=== PATIENT | female | born 1980 | race Caucasian/White ===

== ENCOUNTER → 2023-08-01 14:56 | Outpatient (BNVA) | payer BC, SELFPAY | PROVIDERS: Visit Provider Nurse Practitioner Women's Health | DX: Z01.419 Encounter for gynecological examination (general) (routine) without abnormal findings (principal); Z98.84 Bariatric surgery status | CPT/HCPCS: 82306; 82310; 82607; 82746; 83540; 84425; 84439; 84443; 84481; 87624 ==

== ENCOUNTER 2023-08-16 12:46 | Outpatient (CLI) | payer BC, SELFPAY ==
--- NOTE | 2023-08-16 13:06 | MM_ITS ---
WS: [email or web address] BILATERAL 3D TOMOSYNTHESIS DIGITAL SCREENING MAMMOGRAPHY WITH CAD CLINICAL INFORMATION: SCREENING HISTORY: Screening mammogram. No current complaints. COMPARISON: 09/05/2021 TECHNIQUE: Bilateral CC and MLO views. FINDINGS: Scattered fibroglandular densities bilaterally. No suspicious focal mass, asymmetry, calcifications, or architectural distortion. No evidence of malignancy. Incidental punctate calcifications. IMPRESSION: MM/[place] [id number] BI-RADS: 2-Benign FOLLOW UP: 1 Year Follow-up Recommend return to annual screening mammography.
--- NOTE | 2023-08-16 13:30 | XR_ITS ---
WS: [email or web address] SCREENING DEXA SCAN [employer] CLINICAL INFORMATION: E46 - Unspecified protein-calorie malnutrition COMPARISON: None. FINDINGS: The LEFT forearm bone mineral density measures 0.91. This corresponds to a T score score of 0.5 and Z score of 0.5. Left femoral neck bone mineral density measures 1.061 g/cm2. This corresponds to a T score of 0.4 and Z score of -0.2. Right femoral neck bone mineral density measures 1.074 g/cm2. This corresponds to a T score 0.5of and Z score of 0.0. Mean femoral neck bone mineral density measures 1.068 g/cm2. This corresponds to a T score of 0.5 and Z score of -0.1. IMPRESSION: Normal bone mineralization. Patient's FRAX calculated 10 year probability for major osteoporotic fracture is 1.8% and osteoporoti c hip fracture is 0.0%.
== END 2023-08-16 12:47 | disposition home or self-care (01) ==
LOC: RAD 12:46
PROVIDERS: Visit Provider Nurse Practitioner Women's Health
DX: Z12.31 Encounter for screening mammogram for malignant neoplasm of breast (principal); R92.323 Mammographic fibroglandular density, bilateral breasts; Z13.820 Encounter for screening for osteoporosis; Z78.0 Asymptomatic menopausal state; E46 Unspecified protein-calorie malnutrition
CPT/HCPCS: 77063; 77067; 77080

== ENCOUNTER → 2023-10-07 09:21 | Outpatient (BNVA) | payer BC, SELFPAY | PROVIDERS: PCP Nurse Practitioner Family; Visit Provider Nurse Practitioner Family | DX: M25.531 Pain in right wrist | CPT/HCPCS: 73110 ==

== ENCOUNTER → 2023-10-08 08:56 | Outpatient (BNVA) | payer BC, SELFPAY | PROVIDERS: PCP Nurse Practitioner Family; Visit Provider Nurse Practitioner Family | DX: M25.50 Pain in unspecified joint (principal); Z82.61 Family history of arthritis; Z13.6 Encounter for screening for cardiovascular disorders; Z87.39 Personal history of other diseases of the musculoskeletal system and connective tissue | CPT/HCPCS: 80053; 80061; 85025; 85651; 86140; 86160; 86162; 86235; 86255; 86376; 86431 ==

== ENCOUNTER → 2023-10-29 10:10 | Outpatient (BNVA) | payer BC, SELFPAY | PROVIDERS: PCP Nurse Practitioner Family; Referring Provider Nurse Practitioner Family; Visit Provider Physician Assistant | DX: M25.531 Pain in right wrist; M65.4 Radial styloid tenosynovitis [de Quervain] | CPT/HCPCS: 73110 ==

== ENCOUNTER → 2024-08-06 10:40 | Outpatient (BNVA) | payer BC, SELFPAY | PROVIDERS: PCP Nurse Practitioner Family; Visit Provider Nurse Practitioner Women's Health | DX: Z01.419 Encounter for gynecological examination (general) (routine) without abnormal findings (principal) | CPT/HCPCS: 80053; 82306; 83036; 83718; 83721; 84443; 85025 ==

== ENCOUNTER 2024-08-17 07:52 | Outpatient (CLI) | payer BC, SELFPAY ==
--- NOTE | 2024-08-17 08:00 | MM_ITS ---
WS: [email or web address] BILATERAL SCREENING DIGITAL TOMOSYNTHESIS MAMMOGRAM WITH CAD HISTORY: Z12.39 - Encounter for other screening for malignant neop... COMPARISON: 08/16/2023, 09/05/2021, 07/05/2020 Bilateral CC and MLO views with tomosynthesis and synthetic mammography submitted. Computer aided detection analyzed. Breast composition: There are scattered areas of fibroglandular density. No suspicious masses, microcalcifications or architectural distortion. Benign scattered breast calcifications. MM/MM scr BI tomosynthesis [id number] IMPRESSION: BI-RADS: 2 - Benign. FOLLOW UP: 1 Year Follow-up
== END 2024-08-17 07:53 | disposition home or self-care (01) ==
PROVIDERS: PCP Nurse Practitioner Family; Visit Provider Nurse Practitioner Women's Health
DX: Z12.31 Encounter for screening mammogram for malignant neoplasm of breast (principal); R92.323 Mammographic fibroglandular density, bilateral breasts; R92.1 Mammographic calcification found on diagnostic imaging of breast
CPT/HCPCS: 77063; 77067

== ENCOUNTER 2025-02-17 11:37 | Outpatient (CLI) | payer BC, SELFPAY ==
--- NOTE | 2025-02-17 | XR_ITS ---
WS: [email or web address] XR lumbar spine 2-3V* [id number] REASON FOR EXAM: M41.9 - Scoliosis, unspecified FINDINGS: Thoracolumbar Soliman rods extending from L2-T4. Mild rotatory levoscoliosis of the lumbar spine. Mild straightening of the normal lordosis. No significant compression deformity or focal lumbar vertebral body lesion. Moderate narrowing of the L4-L5 disc space with moderate endplate sclerosis and osteophytosis. 3 to 4 mm of anterolisthesis L4 in relation to L5. No spondylolysis. Mild degenerative arthropathy in the facet joints L4-S1. XR/XR lumbar spine 2-3V* [id number] IMPRESSION: Lumbar degenerative spondylosis as above.
--- NOTE | 2025-02-17 11:44 | XR_ITS ---
WS: [email or web address] XR thoracic spine 3V* [id number] REASON FOR EXAM: M41.9 - Scoliosis, unspecified FINDINGS: Mild dextroscoliosis of the thoracic spine. Soliman rods L2-T4. Surgical appliances are intact and in proper position and alignment. No significant compression deformity or focal lesion of the thoracic vertebrae. Moderate narrowing of the disc spaces with moderate endplate sclerosis and osteophytosis in the mid and lower thoracic spine. XR/XR thoracic spine 3V* [id number] IMPRESSION: Postoperative thoracic spine as above.
--- NOTE | 2025-02-17 11:44 | XR_ITS ---
WS: [email or web address] XR cervical spine 3V* [id number] REASON FOR EXAM: M41.9 - Scoliosis, unspecified FINDINGS: Straightening of the normal lordosis of the cervical spine. Slight dextroscoliosis. No significant compression deformity or focal lesion of the cervical vertebrae. Normal odontoid. Moderate narrowing of the C5-C6 C6-C7 and C7-T1 disc spaces with moderate anterior and posterior osteophytosis. Normal facet joint alignment with mild degenerative changes in the facet joints C5-T1. No significant neutral listhesis. XR/XR cervical spine 3V* [id number] IMPRESSION: Cervical degenerative spondylosis as above.
== END 2025-02-17 11:38 | disposition home or self-care (01) ==
LOC: RAD 11:38
PROVIDERS: PCP Nurse Practitioner Family; Visit Provider Nurse Practitioner Family
DX: M41.9 Scoliosis, unspecified (principal); Z87.39 Personal history of other diseases of the musculoskeletal system and connective tissue; M41.84 Other forms of scoliosis, thoracic region; Z96.698 Presence of other orthopedic joint implants; Z98.890 Other specified postprocedural states; M51.34 Other intervertebral disc degeneration, thoracic region; M96.4 Postsurgical lordosis; M50.322 Other cervical disc degeneration at C5-C6 level; M50.323 Other cervical disc degeneration at C6-C7 level; M25.78 Osteophyte, vertebrae; M50.33 Other cervical disc degeneration, cervicothoracic region; M41.86 Other forms of scoliosis, lumbar region; R29.3 Abnormal posture; M51.369 Other intervertebral disc degeneration, lumbar region without mention of lumbar back pain or lower extremity pain; M43.16 Spondylolisthesis, lumbar region; M46.96 Unspecified inflammatory spondylopathy, lumbar region
CPT/HCPCS: 72040; 72072; 72100

== ENCOUNTER 2025-03-12 07:59 | Outpatient (CLI) | payer BC, SELFPAY ==
--- NOTE | 2025-03-12 08:00 | MR_ITS ---
WS: [email or web address] MRI LUMBAR SPINE NONCONTRAST HISTORY: M54.9 - Dorsalgia, unspecified COMPARISON: None available. TECHNIQUE: Sagittal and axial multisequence imaging is submitted. Posterior Soliman rods are noted extending to the L2 level. 2 mm retrolisthesis of L2 and L3. No fractures or marrow edema. Mild LEFT curvature lumbar spine. Disc spaces and vertebral body heights are well-preserved. Conus terminates normally at L1-2 disc level. L1-L2: Mild annular disc bulging. Mild ligamentum flavum and facet arthritis. There is mild central and subarticular recess stenosis. Minimal foraminal stenosis. L2-L3: Ligamentum flavum and mild facet arthritis. There is mild subarticular recess encroachment. Mild bilateral subarticular recess and foraminal stenosis. L3-L4: Diffuse disc bulging with a shallow LEFT foraminal disc protrusion. Mild ligamentum flavum and facet arthritis. Mild subarticular recess and bilateral foraminal stenosis. L4-L5: Mild annular disc bulging with ligamentum flavum and facet arthritis. LEFT foraminal disc protrusion. There is disc contact on the traversing L5 nerve roots. Mild subarticular recess stenosis with moderate bilateral foraminal stenosis due to disc and osteophyte disease. L5-S1: Bilateral moderate facet joint arthritis. Mild to moderate RIGHT and mild LEFT foraminal stenosis. MR/MR lumbar spine wo con* [id number] IMPRESSION: 1. Quality of this study is compromised by motion artifact and hardware artifa ct. 2. Mild bilateral subarticular recess and foraminal stenosis at L2-3 and L3-4. 3. Moderate bilateral foraminal stenosis at L4-5. There is also mild disc cont act on the traversing L5 nerve roots. Mild subarticular recess stenosis. 4. Mild to moderate RIGHT and mild LEFT foraminal stenosis at L5-S1.
--- NOTE | 2025-03-12 08:45 | MR_ITS ---
WS: [email or web address] MRI THORACIC SPINE noncontrast HISTORY: M54.9 - Dorsalgia, unspecified COMPARISON: Radiograph 02/17/2025 TECHNIQUE: Multiplanar sequences are performed in sagittal and axial planes. Soliman rods extends from T4-L2. Mild long curvature thoracic scoliosis to the RIGHT. No fractures are identified or marrow edema. Minimal disc space narrowing. There is artifact from the patient's Soliman rods extending to the thoracic cord. No obvious signal abnormality noted within the thoracic cord but evaluation is limited. T2-3: Shallow RIGHT paracentral disc protrusion with mild contact on the thoracic cord. T7-8: Deformity of the cord. Large amount of artifact obscuring further detail. T8-9: Obscured by artifact. T9-10: Obscured by artifact. Remaining levels are negative for stenosis. RIGHT thyroid nodule. MR/MR thoracic spin wo con* [id number] IMPRESSION: 1. Status post Soliman mohit placement from T4-L2 and long curvature RIGHT th oracic scoliosis. 2. Numerous disc levels are obscured by artifact from the metal. 3. No significant high-grade central stenosis identified. Signal evaluation of the cord is limited.
--- NOTE | 2025-03-12 09:30 | MR_ITS ---
WS: [email or web address] MRI CERVICAL SPINE NONCONTRAST HISTORY: M47.812 - Spondylosis without myelopathy or radiculopathy... COMPARISON: None available. Technique: Multiplanar, multisequence noncontrast imaging of the cervical spine. Slight straightening and reversal of the normal cervical lordosis. Reversal centered at the C6-7 level. Disc spaces are all mildly narrowed. No acute fractures. No marrow edema. Signal within the cervical cord is normal. Visualized posterior fossa is unremarkable. Mild ectopia of the cerebellar tonsils by 4.3 mm. C2-C3: Normal. C3-C4: Mild osteophytic ridging. No stenosis. C4-C5: Diffuse disc bulging with a moderate central disc protrusion and mild osteophytic ridging. Mild bilateral facet arthritis. Mild effacement of CSF. Mild central stenosis. C5-C6: Diffuse annular disc bulging with osteophytic ridging. Moderate size LEFT foraminal disc osteophyte complex causing mild effacement of the LEFT lateral thecal sac and nerve roots. Small RIGHT foraminal nerve root sleeve diverticulum. Mild to moderate LEFT foraminal stenosis. C6-C7: Diffuse osteophytic ridging and annular disc bulging. Broad-based central disc protrusion effacing CSF and displacing the cord. Moderate to severe central and mild bilateral foraminal stenosis. RIGHT foraminal nerve root sleeve diverticulum. Mild facet arthritis. C7-T1: No stenosis. Bilateral nerve root sleeve diverticula. RIGHT thyroid nodules. The largest is slightly complex measuring 2.5 cm. MR/MR cervical spin wo con* [id number] IMPRESSION: 1. No acute fractures. 2. Moderate to severe central and mild bilateral foraminal stenosis at C6-7 du e to disc and osteophyte disease. There is a large broad-based central disc pro trusion effacing CSF. 3. Moderate LEFT foraminal disc osteophyte complex causing mild to moderate LE FT foraminal stenosis. There is slight effacement on the LEFT lateral thecal sa c. No high-grade central stenosis. 4. Mild central stenosis at C4-5 due to a moderate central disc protrusion. 5. RIGHT thyroid nodules, largest 2.5 cm. These can be further evaluated by th yroid ultrasound. 6. Mild ectopia of the cerebellar tonsils.
== END 2025-03-12 08:00 | disposition home or self-care (01) ==
LOC: RAD 08:03
PROVIDERS: PCP Nurse Practitioner Family; Visit Provider Nurse Practitioner Family
DX: M47.812 Spondylosis without myelopathy or radiculopathy, cervical region (principal); M47.816 Spondylosis without myelopathy or radiculopathy, lumbar region; Z87.39 Personal history of other diseases of the musculoskeletal system and connective tissue; M41.80 Other forms of scoliosis, site unspecified; M25.78 Osteophyte, vertebrae; M48.02 Spinal stenosis, cervical region; M50.223 Other cervical disc displacement at C6-C7 level; M50.221 Other cervical disc displacement at C4-C5 level; E04.2 Nontoxic multinodular goiter; R93.89 Abnormal findings on diagnostic imaging of other specified body structures; Z96.89 Presence of other specified functional implants; M41.34 Thoracogenic scoliosis, thoracic region; M48.061 Spinal stenosis, lumbar region without neurogenic claudication; M48.07 Spinal stenosis, lumbosacral region; M47.896 Other spondylosis, lumbar region; M47.897 Other spondylosis, lumbosacral region; M51.360 Other intervertebral disc degeneration, lumbar region with discogenic back pain only
CPT/HCPCS: 72141; 72146; 72148

== ENCOUNTER 2025-04-09 09:05 | Outpatient (CLI) | payer BC, SELFPAY ==
--- NOTE | 2025-04-09 09:15 | US_ITS ---
WS: [email or web address] THYROID ULTRASOUND HISTORY: E04.1 - Nontoxic single thyroid nodule COMPARISON: MRI C-spine 03/12/2025 Right lobe: 2.5 cm x 2.4 cm x 6.0 cm (w x ap x l). Volume: 17.1 cm3. Enlarged heterogeneous thyroid. There is an ovoid nodule with mild peripheral increased vascularity. Ovoid nodule measures 3.0 x 1.5 x 2.9 cm. There is a small cystic component within this nodule but it is predominantly solid. No echogenic foci. There is a smaller nodule in the inferior pole 1.0 x 0.9 x 0.9 cm. Left lobe: 1.3 cm x 1.5 cm x 5.7 cm (w x ap x l). Volume: 5.3 cm3. Normal sized gland. There is a hypoechoic nodule in the inferior pole measuring 1.7 x 1.2 x 2.3 cm. No echogenic foci. This is a solid nodule. Mild increased vascularity. Isthmus: 0.2 cm. US/US thyroid [id number] IMPRESSION: 1. TI-RADS 4; dominant RIGHT thyroid nodule in the mid gland. Ultrasound-guide d FNA recommended. 2. TI-RADS 4; hypoechoic LEFT thyroid nodule inferior pole. Ultrasound-guided FNA recommended.
== END 2025-04-09 09:06 | disposition home or self-care (01) ==
LOC: RAD 09:06
PROVIDERS: PCP Nurse Practitioner Family; Visit Provider Nurse Practitioner Family
DX: E04.2 Nontoxic multinodular goiter (principal)
CPT/HCPCS: 76536

== ENCOUNTER → 2025-04-20 10:10 | Outpatient (BNVA) | payer BC, SELFPAY | PROVIDERS: PCP Nurse Practitioner Family; Visit Provider Nurse Practitioner Family | DX: E04.1 Nontoxic single thyroid nodule (principal) | CPT/HCPCS: 80053; 84439; 84443; 85025 ==